=== PATIENT | male | born 2005 | race Two or more races ===

== ENCOUNTER 2024-03-18 00:34 | Emergency (ER) | payer MEDICAID, SELFPAY ==
[2024-03-18 00:34] VITALS: BMI 31.3
[2024-03-18 00:50] VITALS: BP 163/101; BP 167/109; PULSE 68; RESP 20; TEMP 36.8; O2SAT 97
--- NOTE | 2024-03-18 01:01 | XR_ITS ---
Examination: CT abdomen and pelvis without contrast. Coronal 3-D reconstructions. Sagittal 2-D reconstructions. Date and time of exam:March 18, 2023 at 0129 hrs. Indications: Onset right flank groin and testicular pain today CTDI: vol (mGy): 8.41 DLP: (mGycm): 504 Technique: Axial images of the abdomen have been obtained, 3 mm slice thickness Intravenous contrast material has not been administered. Low dose protocols were performed. One or more of the following dose reduction techniques were used; automated exposure control, adjustment of the mA and/or KV according to patient size, use of iterative reconstruction technique. Findings: Diffuse fatty infiltration throughout the liver No gallstones Spleen not enlarged No pancreatic or adrenal mass Mild right hydronephrosis secondary to 6 mm distal right ureteral calculus Normal appendix No bowel obstruction or diverticulitis Contracted urinary bladder No prostatomegaly The osseous structures are intact Impression: Mild right hydronephrosis secondary to 6 mm distal right ureteral calculus
--- NOTE | 2024-03-18 01:01 | XR_ITS ---
Examination: Testicular sonography complete Technique: Multiple grayscale sonographic images testes, assessment arterial and inflow venous outflow Doppler spectral analysis, flow analysis Exam date and time: March 18, 2024 0015 hrs. Indications: Bilateral testicular pain beginning 2 hours ago Findings: Right testis 4.5 x 2.6 x 3.0 cm Epididymis 8 mm Arterial flow to the testicle. No testicular mass Minimal hydrocele Left testis 4.0 x 2.2 x 2.7 cm Epididymis 10 mm, mildly heterogeneous Arterial flow testicle. No testicular mass Minimal hydrocele Impression: No testicular torsion or testicular mass Mild left epididymitis
--- NOTE | 2024-03-18 01:02 | EDRME_ITS ---
Rapid Medical Screening Exam [facility] Arrival date/time: 03/18/24 00:34 18M with no significant PMH presents to ED with 2 hours of R testicular/flank pain and N/V. Patient denies dysuria and penile discharge. Chief Complaint: Urogenital-Male Vital signs: Vital Signs Temperature 98.3 F 03/18/24 00:50 Pulse Rate 68 03/18/24 00:50 Respiratory Rate 20 03/18/24 00:50 Blood Pressure 167/109 H 03/18/24 00:50 Pulse Oximetry (%) 97 03/18/24 00:50 Oxygen Delivery Method Room Air 03/18/24 00:50
[2024-03-18] MEDS: ONDANSETRON ODT 4 MG TABRAP PO (01:10)
[2024-03-18] MEDS: KETOROLAC INJ 60 MG/2 ML VIAL IM (01:10)
--- NOTE | 2024-03-18 02:24 | PRELIM_ITS ---
CT abdomen and pelvis without intravenous contrast (axial sections with sagittal and coronal reformat s) March 18, 2024 0129 hours Clinical History: Right flank/groin pain. Comparison: No prior study is available for comparison. Findings:Bibasilar streaky atelectasis is present. There is a 6 mm calcu yo in the right distal ureter (sagittal image 109/185) with mild hydroureteronephrosis. The urinary bladder is unremarkable.Fatty infiltration of the liver is noted. The gallbladder, spleen, pancreas a nd adrenals appear unremarkable on this noncontrast study.The appendix is within normal limits (axial images 126-144/287). No free fluid or free air is seen.The urinary bladder is incompletely distended at the time of the examination. The osseous structures are unremarkable.Impression:A 6mm obstructing right distal ureteric calculus with mild hydroureteronephrosis.Other findings as described above. Irvin bennett Electronically Signed By: Karel Chan 03/18/2024 2:24:31 AM [EST]
--- NOTE | 2024-03-18 03:18 | PRELIM_ITS ---
Ultrasound of the scrotum. March 18, 2024 at 0115 hoursClinical history: bilateral left more than r ight testicular pain. Technique: Real-time ultrasound was performed using Duplex scanning including a rterial inflow, venous outflow, color and spectral Doppler analysis of both testes. Findings:Right: T he right testicle measures 4.5 x 2.6 x 3 cm and demonstrates normal echogenicity and Doppler flow sig nal. The right epididymis measures 0.8 x 0.7 x 0.6 cm. There is minimal hydrocele.Left: The left test icle measures 4 x 2.2 x 2.7 cm and demonstrates normal echogenicity and Doppler flow signal. The left epididymis is heterogeneous and measures 0.9 x 1 x 1 cm. There is minimal hydrocele.Impression:No ev idence of testicular torsion.Heterogeneous left epididymis, mild/early epididymitis cannot be exclude d. Recommend clinical correlation.Minimal bilateral hydrocele. Report Electronically Signed By: Karel Chan 03/18/2024 3:17:57 AM [EST]
[2024-03-18 03:27] LABS: Collection Type, Urine Clean Catch
[2024-03-18 03:30] LABS: Bilirubin,Urine Negative (Negative); Blood,Urine 2+ (Negative); Clarity,Urine Clear (Clear/Hazy); Color,Urine Yellow (Lt Yel-Yel); Culture Indicated,Urine Not Indicated; Glucose, Urine Negative (Negative); Ketones,Urine Negative (Negative); Leukocyte Esterase,Urine Negative (Negative); Nitrite,Urine Negative (Negative); Protein,Urine 1+ (Neg - Trace); RBC,Urine 89 /hpf (0-3); Specific Gravity,Urine 1.038 (1.001-1.035); Squamous Epithelial Cell,Urine < 1 /hpf (0-5); WBC,Urine 1 /hpf (0-5)
[2024-03-18 03:37] LABS: Amphetamine/Methamp Scrn,U Negative (Negative); Barbiturate Screen,Urine Negative (Negative); Benzodiazepines Screen,Urine Negative (Negative); Benzoylecgonine Screen, Ur Negative (Negative); Fentanyl Screen,Urine Negative (Negative); Opiate Screen,Urine Negative (Negative); THC Screen,Urine Negative (Negative)
[2024-03-18 03:50] LABS: Basophils # (Auto) 0.1 Thou/mm3 (0.0-0.2); Basophils % (Auto) 0 % (0-2.5); Eosinophils % (Auto) 0 % (0-10); Hematocrit 43.3 % (41.0-53.0); Hemoglobin 15.2 g/dL (13.5-16.0); Immature Granulocytes % (Auto) 0 % (0-0); Immature Granulocytes Auto 0.07 Thou/mm3 (0.00-0.00); Lymphocytes # (Auto) 1.4 Thou/mm3 (1.0-4.8); Lymphocytes % (Auto) 8 % (10-50); Mean Corpuscular HGB Conc 35.1 g/dl (31.0-37.0); Mean Corpuscular Volume 85 fL (80-100); Monocytes # (Auto) 0.5 Thou/mm3 (0.0-0.8); Monocytes % (Auto) 3 % (0-12); Neutrophils # (Auto) 15.1 Thou/mm3 (1.8-7.7); Neutrophils % (Auto) 88 % (37-80); Nucleated Red Blood Cell % 0 /100 WBC (0); Platelet Count 322 Thou/mm3 (140-440); RDW Standard Deviation 39.3 fL (35.1-43.9); Red Blood Count 5.07 Miln/mm3 (4.50-5.90); White Blood Count 17.2 Thou/mm3 (4.5-11.0)
[2024-03-18 04:11] LABS: Alanine Aminotransferase 62 U/L (10-49); Albumin/Globulin Ratio 1.9 (1.2-2.2); Alkaline Phosphatase 95 U/L (46-116); Anion Gap 9 (7-16); Aspartate Amino Transferase 24 U/L (0-34); BUN/Creatinine Ratio 10 Ratio (12-20); Bilirubin,Total 0.5 mg/dL (0.3-1.2); Blood Urea Nitrogen 11 mg/dL (9-23); Calcium 9.8 mg/dL (8.3-10.6); Calcium (Corrected) 9.8 mg/dL (8.5-10.1); Carbon Dioxide 24.6 mMol/L (20.0-31.0); Chloride 106 mMol/L (98-107); Creatinine (Component) 1.1 mg/dL (0.6-1.3); Estimated Creatinine Clearance 115.1 mL/min (>60); Globulin 2.7 gm/dL (2.3-3.5); Glucose 111 mg/dL (74-106); Osmolality,Calculated 279 (275-295); Potassium 4.1 mMol/L (3.4-5.1); Sodium 140 mMol/L (136-145); Total Protein 7.7 gm/dL (5.7-8.2); eGFR > 60 See Note
[2024-03-18 04:12] VITALS: BP 150/100; PULSE 67; RESP 18; O2SAT 97
--- NOTE | 2024-03-18 04:25 | EDNOTE_ITS ---
ED Male Genitalurinary RME/HPI General Chief complaint: Urogenital-Male Stated complaint: TESTICULAR PAIN RAD TO LOWER ABD X 1 HR Arrival date/time: 03/18/24 00:34 RME / HPI RME / HPI Narrative: 03/18/24 00:34 18M with no significant PMH presents to ED with 2 hours of R testicular/flank pain and N/V. Patient denies dysuria and penile discharge. --------- Dr. Belle?s Main ED Evaluation: 18yo male presents to the ED for a chief complaint of left flank pain x 2200. Patient states he started having [id number] left flank pain with associated nausea and vomiting, so he came in for evaluation. He denies any UTI symptoms, diarrhea, fever, chills or any other associated symptoms. No known allergies. Related Data Previous Rx's ?Medication ?Instructions ?Recorded promethazine-DM 6.25 mg-15 mg/5 mL 5 ml PO Q6H #200 mL 06/21/19 oral syrup Allergies Allergy/AdvReac Type Severity Reaction Status Date / Time No Known Allergies Allergy Verified 03/18/24 00:36 Review of Systems Review of Systems Systems Reviewed: All systems reviewed, normal except as documented Past Medical History Past Medical History NEUROLOGIC: Negative Neurological Disorders CARDIAC: Negative Cardiac Disorders or Congestive Heart Failure RESPIRATORY: Negative Chronic Obstructive Pulmonary Disease (COPD) GASTROINTESTINAL: Negative Gastrointestinal Disorders GENITOURINARY: Negative Genitourinary Disorders or Renal Disease MUSCULOSKELETAL: Negative Musculoskeletal Disorders ENDOCRINE: Negative Endocrine Disorders, Diabetes Mellitus Type 1 or Diabetes Mellitus Type 2 HEMATOLOGIC: Negative Blood Disorders Social History SMOKING STATUS: Never smoker ED Exam Narrative Physical exam: GENERAL APPEARANCE: alert and oriented x 4, well-developed, well-nourished, no acute distress VITALS: All vitals were reviewed and the pulse ox is 97% on room air, which is normal according to my interpretation. HEENT: Normocephalic, atraumatic; pupils equal, round, reactive to light; EOMI; mucous membranes pink, moist; oropharynx clear NECK: Supple LUNGS: CTABL; no wheezes, no rales, no rhonchi HEART: Regular rate, regular rhythm; normal S1, S2; no murmurs ABDOMEN: non distended; normal BS; soft, no tenderness, no guarding, no rebound; no masses, no organomegaly, no hernia BACK: significant right-sided CVA tenderness EXTREMITIES: atraumatic; no edema NEUROLOGIC: awake; alert and oriented x4; cranial nerves II-XII grossly intact; no focal sensory or motor deficits PSYCHIATRIC: appropriate mood and affect SKIN: warm, dry, normal color; no rashes Course Quality Measures none Orders Category Date Time Status IV [Insert IV] NOW Care 03/18/24 04:[address] abdomen pelvis wo con Stat Exams 03/18/24 01:01 Taken US testicular Stat Exams 03/18/24 01:01 Taken CBC Stat Lab 03/18/24 03:22 Completed CMP [Comprehensive Metabolic Panel] Stat Lab 03/18/24 03:27 Completed Drug Screen,Urine Stat Lab 03/18/24 03:15 Completed Urinalysis, C/S if Indicated Stat Lab 03/18/24 03:15 Completed HYDROmorphone INJ [Dilaudid Inj] Med 03/18/24 04:18 Discontinued 0.5 mg IVP X1 ONE Ketorolac Inj [Toradol Inj] Med 03/18/24 01:01 Discontinued 60 mg IM X1 ONE Ondansetron Odt [Zofran Odt] Med 03/18/24 01:01 Discontinued 4 mg PO X1 ONE Vital Signs Vital signs: Vital Signs Temperature 98.3 F 03/18/24 00:50 Pulse Rate 68 03/18/24 00:50 Respiratory Rate 20 03/18/24 00:50 Blood Pressure 167/109 H 03/18/24 00:50 Pulse Oximetry (%) 97 03/18/24 00:50 Oxygen Delivery Method Room Air 03/18/24 00:50 Urogenital - Male MDM Narrative MDM Narrative:: Scribe Attestation: 03/18/24 Cece Cabrera am scribing for and in the presence of Dr. Belle. Patient data External records reviewed:: [facility] previous records (Per chart review, patient has no relevant previous ED visits.) Clinical information provided by:: patient Social determinants that could affect healthcare access:: none Patient has the following chronic illnesses:: none How is presenting disease/condition affected by chronic disease/condition?: no chronic disease Evaluation data The following diagnostics were reviewed and interpreted by me:: lab results and radiology exam(s) Lab and/or radiology exams considered but not ordered:: none Interpretation Summary: WBC count is elevated at 17.2, CMP is normal, UA shows 89 RBCs, UDS is negative, according to my interpretation. ------ [facility] Preliminary Report Draft Patient: CHEKO HI. Record#: [id number] Birthdate: 2005 Age/Sex: 18 / M Location: [facility] Attending Dr: Ordering Physician: Date of Service: Procedure(s): Accession Number(s): cc: ~ CT abdomen and pelvis without intravenous contrast (axial sections with sagittal and coronal reformats) March 18, 2024 0129 hours Clinical History: Right flank/groin pain. Comparison: No prior study is available for comparison. Findings: Bibasilar streaky atelectasis is present. There is a 6 mm calculus in the right distal ureter (sagittal image 109/185) with mild hydroureteronephrosis. The urinary bladder is unremarkable. Fatty infiltration of the liver is noted. The gallbladder, spleen, pancreas and adrenals appear unremarkable on this noncontrast study. The appendix is within normal limits (axial images 126-144/287). No free fluid or free air is seen. The urinary bladder is incompletely distended at the time of the examination. The osseous structures are unremarkable. Impression: A 6mm obstructing right distal ureteric calculus with mild hydroureteronephrosis. Other findings as described above. Report Electronically Signed By: Karel Chan 03/18/2024 2:24:31 AM [EST] [facility] Preliminary Report Draft Patient: CHEKO HI. Record#: [id number] Birthdate: 2005 Age/Sex: 18 / M Location: [facility] Attending Dr: Ordering Physician: Date of Service: Procedure(s): Accession Number(s): cc: ~ Ultrasound of the scrotum. March 18, 2024 at 0115 hours Clinical history: bilateral left more than right testicular pain. Technique: Real-time ultrasound was performed using Duplex scanning including arterial inflow, venous outflow, color and spectral Doppler analysis of both testes. Findings: Right: The right testicle measures 4.5 x 2.6 x 3 cm and demonstrates normal echogenicity and Doppler flow signal. The right epididymis measures 0.8 x 0.7 x 0.6 cm. There is minimal hydrocele. Left: The left testicle measures 4 x 2.2 x 2.7 cm and demonstrates normal echogenicity and Doppler flow signal. The left epididymis is heterogeneous and measures 0.9 x 1 x 1 cm. There is minimal hydrocele. Impression: No evidence of testicular torsion. Heterogeneous left epididymis, mild/early epididymitis cannot be excluded. Recommend clinical correlation. Minimal bilateral hydrocele. Report Electronically Signed By: Karel Chan 03/18/2024 3:17:57 AM [EST] Medications / Prescriptions Medications or Prescriptions considered but not ordered:: none Medication administrations:: Medication Administration History Discontinued Medications Hydromorphone HCl (Hydromorphone Inj 2 Mg/Ml Vial) 0.5 mg IVP X1 ONE Stop: 03/18/24 04:19 Last Admin: 03/18/24 04:46 Dose: 0.5 mg Documented By: AMIE Ketorolac Tromethamine (Ketorolac Inj 60 Mg/2 Ml Vial) 60 mg IM X1 ONE Stop: 03/18/24 01:02 Last Admin: 03/18/24 01:10 Dose: 60 mg Documented By: LENARD Ondansetron HCl (Ondansetron Odt 4 Mg Tabrap) 4 mg PO X1 ONE; Protocol Stop: 03/18/24 01:02 Last Admin: 03/18/24 01:10 Dose: 4 mg Documented By: LENARD see above Consultations Consultation(s) initiated? (list below): Yes Consultation #1 (Physician, Specialty, Details): Spoke with [facility], who states they will call their urologist at 0700. Time: 05:51 Diagnosis Urogenital Male Differential Diagnosis: urinary tract infection and other (cystitis, pyelonephritis, kidney colic, obstructing kidney colic) Most likely diagnosis given after review of the tests above:: see below Admission Indicated Admission indicated?: not indicated Admission Request Was there a request for admission?: No Disposition Plan Disposition Plan: other (specify) (Signed out to Dr. Aguilar at 0600 pending urology consultation/transfer.) Discharge Plan Plan Disposition Comment: Stable at signout. Prescriptions/Referrals Prescriptions/Med Rec: No Action promethazine-DM 6.25-15 mg/5 mL syrup 5 ml PO Q6H Qty: 200 0RF Referrals: No Primary/Family,Physician [Primary Care Provider] - In 1 week Problem List Clinical Impression: Right ureteral stone Patient/Caregiver Discharge Instructions Print Language: Uruguayan
[2024-03-18] MEDS: HYDROmorphone INJ 2 MG/ML VIAL 0.5 MG IVP (04:46)
--- NOTE | 2024-03-18 05:25 | PC.NURSE ---
4627 HAKEEM HI CONTACTED PKT SENT.
[2024-03-18 06:12] VITALS: BP 141/101; PULSE 77; RESP 16; TEMP 37.4; O2SAT 95
--- NOTE | 2024-03-18 06:13 | PD.EDADDENDU ---
Emergency Room Addendum <Misa Mccray - Last Filed: 03/18/24 06:14> Addendum Narrative: 0600: Care assumed from Dr. Belle, the previous shift emergency physician. Past medical, surgical, social and family history reviewed. Vitals and home medications reviewed. I will assume the care of the patient at this time, pending transfer for urology services. Please refer to the emergency department record for history and examination from initial visit.? Physical exam by me shows patient under no acute distress at this time. <Vivian Aguilar MD - Last Filed: 03/18/24 10:17> Addendum Narrative: 0600: Care assumed from Dr. Belle, the previous shift emergency physician. Past medical, surgical, social and family history reviewed. Vitals and home medications reviewed. I will assume the care of the patient at this time, pending transfer for urology services. Please refer to the emergency department record for history and examination from initial visit.? Physical exam by me shows patient under no acute distress at this time. Normal saline fluid bolus 1 L x 2 ordered. Flomax 0.4 p.o. ordered. Discussed with Dr. Lay urology at [facility]. Stable for outpatient follow-up. Patient discharged with ibuprofen and Flomax.
[2024-03-18 06:47] VITALS: BP 136/81; PULSE 64; RESP 16; O2SAT 98
--- NOTE | 2024-03-18 08:49 | PC.CM ---
Addendum entered by Brigid Ward RN 03/18/24 10:54: 1056 called [facility], spoke to Paula and informed transfer request is canceled and pt is discharged. 1052 Called ED, spoke to Raul for update. Raul informed me that transfer is canceled and pt is discharged. Addendum entered by Brigid Ward RN 03/18/24 10:13: 1008 received call from [facility], spoke to Gabi. Gabi has her urologist Dr. Lay on the line for peer to peer with Dr. Aguilar. Conference call connected. Plan is to reevaluate the pt and see if transfer is still needed. Addendum entered by Brigid Ward RN 03/18/24 09:20: 0920 called [facility], spoke to Leo and gave updates that pt is willing to go to [place]. Addendum entered by Brigid Ward RN 03/18/24 09:18: 0917 called ED and spoke to charge nurse to ask if pt agrees to go to [place]. Charge nurse checked with pt and per charge nurse pt is OK to go to [place]. Addendum entered by Brigid Ward RN 03/18/24 09:08: 0909 called [facility], spoke to Leo regarding transfer update. She then transferred me to [facility]. Gabi stated they don't have the capacity at any of [place] location but if pt agrees, she can try [facility] location. Addendum entered by Brigid Ward RN 03/18/24 09:06: 0905 spoke to Raul in ED. She updated me that she spoke to [facility] and they don't have urology till Saturday. She also stated pt prefers to go to [place] than [place] and [facility] was reached out during [facility] shift lead. I let her know that I will follow up with [facility]. Original Note: [id number] [facility] 1482 Spoke to charge nurse, pt needs to be transferred for 6mm obstructing right distal ureteric calculus needs urology services.
[2024-03-18 08:59] VITALS: BP 145/89; PULSE 65; RESP 16; TEMP 36.8; O2SAT 98
[2024-03-18] MEDS: TAMSULOSIN HCL 0.4 MG CAPSULE PO (09:18)
[2024-03-18] MEDS: SODIUM CHLORIDE 0.9% 1000 ML 1,000 ML 999 ML IV ×2 (09:21)
[2024-03-18 10:22] VITALS: BP 148/96; PULSE 76; RESP 16; TEMP 36.8
[2024-03-18] MEDS: HYDROcodone/APAP 5/325 TABLET 1 TAB PO (10:33)
== END 2024-03-18 10:41 | disposition home or self-care (01) ==
PROVIDERS: Physician Assistant; Emergency Provider Emergency Medicine
DX: N13.2 Hydronephrosis with renal and ureteral calculous obstruction (principal); N43.3 Hydrocele, unspecified; N45.1 Epididymitis
CPT/HCPCS: 36415; 74176; 76870; 80053; 80307; 81001; 85025; 96361; 96372; 96374; 99284; J1885; J3490; J7030; Q0162; A9270

== ENCOUNTER 2024-06-24 15:09 | Emergency (ER) | payer MEDICAID, SELFPAY ==
[2024-06-24 15:10] VITALS: BMI 30.8
[2024-06-24 15:32] VITALS: BP 138/98; PULSE 93; RESP 18; TEMP 36.9; O2SAT 95
[2024-06-24] MEDS: cefTRIAXone SOD INJ 1,000 MG VIAL 1000 MG IM (16:04)
[2024-06-24] MEDS: LIDOCAINE HCL 1% 20 ML VIAL 2.1 ML INFL (16:04)
[2024-06-24] MEDS: IBUPROFEN TAB 400 MG TABLET 800 MG PO (16:05)
[2024-06-24] MEDS: DEXAMETHASONE SOD PHOS INJ 10 MG/ML VIAL PO (16:05)
--- NOTE | 2024-06-24 16:12 | EDNOTE_ITS ---
<Statement entered by Vivian Aguilar MD - 06/25/24 08:13> As co-signing physician, I was present and available for consult prn. I concur with the plan and care as documented by the midlevel provider. Upper Respiratory Inf. RME/HPI General Chief Complaint: Dental/Oral/Throat Stated Complaint: DIFF BREATHING FEELS LIKE THROAT IS CLOSING Time Seen by Provider: 06/24/24 15:35 Arrival date/time: 06/24/24 15:09 19-year-old male presents emergency department today for complaints of sore throat ongoing since this morning Limitations: no limitations Related Data Previous Rx's ?Medication ?Instructions ?Recorded promethazine-DM 6.25 mg-15 mg/5 mL 5 ml PO Q6H #200 mL 06/21/19 oral syrup ibuprofen 600 mg tablet 600 mg PO Q6H PRN pain #30 t abs 03/18/24 tamsulosin 0.4 mg capsule 0.4 mg PO QDAY #14 caps 04/11 amoxicillin 875 mg-potassium 1 tab PO BID 10 days #20 tabs 06/24/24 clavulanate 125 mg tablet ibuprofen 800 mg tablet 800 mg PO TID PRN pain #30 t abs 06/24/24 Allergies Allergy/AdvReac Type Severity Reaction Status Date / Time No Known Allergies Allergy Verified 06/24/24 15:12 Review of Systems Review of Systems Systems Reviewed: All systems reviewed, normal except as documented Constitutional Constitutional: Reports system reviewed and no additional complaints, except as documented, Denies fever(s) and Denies headache(s) Eyes Eyes: Reports system reviewed and no additional complaints, except as documented and Denies blurry vision ENT Ears, Nose, Mouth, and Throat: Reports system reviewed and no additional complaints, except as documented, Denies headache(s), Reports nasal congestion, Reports nasal discharge and Reports sore throat Cardiovascular Cardiovascular: Reports system reviewed and no additional complaints, except as documented, Denies chest pain and Denies dyspnea Respiratory Respiratory: Reports system reviewed and no additional complaints, except as documented, Denies chest congestion, Denies cough and Denies dyspnea Gastrointestinal Gastrointestinal: Reports system reviewed and no additional complaints, except as documented and Denies abdominal pain Integumentary/Breasts Skin/Breast: Reports system reviewed and no additional complaints, except as documented and Denies rash Neurologic Neurologic: Reports system reviewed and no additional complaints, except as documented, Reports as per HPI and Denies headache(s) Past Medical History Past Medical History NEUROLOGIC: Negative Neurological Disorders CARDIAC: Negative Cardiac Disorders or Congestive Heart Failure RESPIRATORY: Negative Chronic Obstructive Pulmonary Disease (COPD) GASTROINTESTINAL: Negative Gastrointestinal Disorders GENITOURINARY: Negative Genitourinary Disorders or Renal Disease MUSCULOSKELETAL: Negative Musculoskeletal Disorders ENDOCRINE: Negative Endocrine Disorders, Diabetes Mellitus Type 1 or Diabetes Mellitus Type 2 HEMATOLOGIC: Negative Blood Disorders Social History SMOKING STATUS: Never smoker ED Exam General Limitations: Present no limitations General appearance: Present alert and in no apparent distress Head Head exam: Present atraumatic, normocephalic and normal inspection Eye Eye exam: Present normal appearance, PERRL and EOMI; Absent conjunctival in jection ENT ENT exam: Present normal exam, normal oropharynx and mucous membranes moist Neck Neck exam: Present normal inspection, full ROM and trachea midline Chest Chest inspection: Present normal inspection and symmetric chest wall rise Respiratory Respiratory exam: Present normal lung sounds bilaterally; Absent respiratory distress Cardiovascular Cardiovascular exam: Present regular rate, normal rhythm and normal heart sounds Abdominal Exam Abdominal exam: Present soft and normal bowel sounds; Absent distention, tenderness, guarding, rebound or rigidity Extremities Exam Extremities exam: Present normal inspection and full ROM Back Exam Back exam: Present normal inspection and full ROM Neurological Exam Neurological exam: Present alert, oriented X3 and CN II-XII intact Psychiatric Psychiatric exam: Present normal affect and normal mood Skin Skin exam: Present warm, dry, intact and normal color Course Quality Measures none Orders Category Date Time Status Dexamethasone Inj [Decadron Inj] Med 06/24/24 15:38 Discontinued 10 mg PO X1 ONE Ibuprofen Tab [Motrin Tab] Med 06/24/24 15:38 Discontinued 800 mg PO X1 ONE Lidocaine 1% 20 ml [Xylocaine 1% 20 ML] Med 06/24/24 15:38 Discontinued 2.1 ml INFL X1 ONE cefTRIAXone [Rocephin] Med 06/24/24 15:38 Discontinued 1,000 mg IM X1 ONE Vital Signs Vital signs: Vital Signs Temperature 98.5 F 06/24/24 15:32 Pulse Rate 93 06/24/24 15:32 Respiratory Rate 18 06/24/24 15:32 Blood Pressure 138/98 H 06/24/24 15:32 Pulse Oximetry (%) 95 06/24/24 15:32 Oxygen Delivery Method Room Air 06/24/24 15:32 O2 saturation 95% room air within normal limits Upper Respiratory Infection MDM Narrative MDM Narrative:: 19-year-old male presents emergency department today for complaints of sore throat ongoing since this morning On exam patient well-appearing patient is not appear ill or toxic in no acute distress On exam patient does have tonsillar erythema and tonsillar swelling and tonsillar exudate consistent with pharyngitis Patient is no trismus no hoarseness of voice no LV deviation Patient discharged home in no distress to follow-up with primary care doctor in the next 24 to 48 hours and for any worsening symptoms to return to the ER immediately Patient data External records reviewed:: [facility] previous records Clinical information provided by:: patient Social determinants that could affect healthcare access:: none Patient has the following chronic illnesses:: None How is presenting disease/condition affected by chronic disease/condition?: no chronic disease Evaluation data The following diagnostics were reviewed and interpreted by me:: other (specify) (N/A) Lab and/or radiology exams considered but not ordered:: Consider not ordered Interpretation Summary: N/A Medications / Prescriptions Medications or Prescriptions considered but not ordered:: Given Medication administrations:: Medication Administration History Discontinued Medications Ceftriaxone Sodium (Ceftriaxone Sod Inj 1,000 Mg Vial) 1,000 mg IM X1 ONE Stop: 06/24/24 15:39 Last Admin: 06/24/24 16:04 Dose: 1,000 mg Documented By: TM Dexamethasone Sodium Phosphate (Dexamethasone Sod Phos Inj 10 Mg/Ml Vial) 10 mg PO X1 ONE Stop: 06/24/24 15:39 Last Admin: 06/24/24 16:05 Dose: 10 mg Documented By: TM Ibuprofen (Ibuprofen Tab 400 Mg Tablet) 800 mg PO X1 ONE Stop: 06/24/24 15:39 Last Admin: 06/24/24 16:05 Dose: 800 mg Documented By: TM Lidocaine HCl (Lidocaine Hcl 1% 20 Ml Vial) 2.1 ml INFL X1 ONE Stop: 06/24/24 15:39 Last Admin: 06/24/24 16:04 Dose: 2.1 ml Documented By: TM Given Consultations Consultation(s) initiated? (list below): No Diagnosis Upper Respiratory Differential Diagnosis: upper respiratory infection, otitis media, sinusitis and viral infection Most likely diagnosis given after review of the tests above:: Pharyngitis Admission Indicated Admission indicated?: not indicated Admission Request Was there a request for admission?: No Disposition Plan Disposition Plan: Discharge Discharge Attestation Discharge Attestation: The patient and all family members were given an opportunity to ask questions and understood the discharge instructions. Discharge instructions specifically effects, indications for sooner follow up or return to the emergency department, and the expected course of current diagnosis. Patient condition: Stable Discharge Plan Plan Patient Disposition: HOME (Self Care) Disposition Comment: Stable Prescriptions/Referrals Prescriptions/Med Rec: New ibuprofen 800 mg tablet 800 mg PO TID PRN (Reason: pain) Qty: 30 0RF amoxicillin-pot clavulanate 875-125 mg tablet 1 tab PO BID 10 Days Qty: 20 0RF No Action promethazine-DM 6.25-15 mg/5 mL syrup 5 ml PO Q6H Qty: 200 0RF tamsulosin 0.4 mg capsule 0.4 mg PO QDAY Qty: 14 0RF ibuprofen 600 mg tablet 600 mg PO Q6H PRN (Reason: pain) Qty: 30 0RF Referrals: No Primary/Family,Physician [Primary Care Provider] - In 1 week Problem List Clinical Impression: Pharyngitis Patient/Caregiver Discharge Instructions Education Materials: Self-Care for Sore Throats Additional Instructions: Please follow up with your primary care doctor in the next 24-48hrs for any worsening symptoms return here immediately Print Language: Bel[place]ian Stand Alone Forms: Elisa Award Info., Work/School Release, Patient Portal Info Letter PA/SHOWCASE TRIMMER Supervising Physician PA/SHOWCASE TRIMMER Supervising Physician: Dr. aguilar
== END 2024-06-24 16:20 | disposition home or self-care (01) ==
PROVIDERS: Emergency Provider Emergency Medicine
DX: J02.9 Acute pharyngitis, unspecified (principal)
CPT/HCPCS: 96372; 99283; J0696; J1100; J3490; A9270